=== PATIENT | male | born 1955 | race Caucasian/White ===

== ENCOUNTER 2023-12-06 03:54 | Inpatient (IN) | payer MEDICARE ==
[~2023-12-06] VITALS: Ht 182.9 cm; Wt 105.1 kg
[~2023-12-06 03:54] MED LIST: ASPI325 PO; BUSP10 PO; Bactrim Ds Tab1 EACH PO; CEPH500 PO; CIPR500 PO; CREAMS; FLUOCINONIDE120 GM; HYDACE5 PO; HYDSUL200 PO; LISI5 PO; METO25ER PO; METPRE4DP PO; METTREX2.5 PO; NAPR500 PO; Nitrostat0.4 MG SL; OSEL75CA PO; OXYC10TA19 PO; Percocet 5-3251 EACH PO; Prilosec20 MG PO; SUBOXONE 8 MG-1 EACH SL; Zofran Odt4 MG SL; [UNRECOGNIZED DRUG - OTHER] TOP
[2023-12-06 04:39] LABS: BASOPHILS ABSOLUTE AUTO 0.03 K/mm3 (0.00-0.23); BASOPHILS PERCENT AUTO 0 % (0-2); EOSINOPHILS ABSOLUTE AUTO 0.12 K/mm3 (0.00-0.68); EOSINOPHILS PERCENT AUTO 1 % (0-6); Hemoglobin 11.8 g/dL (13.5-17.5); IMMATURE GRAN ABSOLUTE AUTO 0.02 K/mm3 (0.00-0.10); IMMATURE GRAN PERCENT AUTO 0 % (0-1); LYMPHOCYTES ABSOLUTE AUTO 0.61 K/mm3 (0.84-5.20); LYMPHOCYTES PERCENT AUTO 6 % (21-46); MONOCYTES ABSOLUTE AUTO 0.54 K/mm3 (0.16-1.47); MONOCYTES PERCENT AUTO 6 % (4-13); Mean Corpuscular HGB 30.7 pg (26.0-34.0); Mean Corpuscular HGB Conc 34.7 g/dL (31.5-36.5); Mean Corpuscular Volume 89 fL (80-100); Mean Platelet Volume 9.9 fL (9.1-12.4); NEUTROPHILS PERCENT AUTO 87 % (41-73); Platelet Count 208 K/mm3 (150-400); RDW Coefficient Variation 13.2 % (11.7-14.2); RDW Standard Deviation 43.2 fL (35.1-46.3); Red Blood Cell Count 3.84 M/mm3 (4.30-5.90); White Blood Cell Count 9.82 K/mm3 (4.00-11.30)
[2023-12-06 04:55] LABS: Albumin, Blood 3.6 g/dL (3.4-5.0); Bilirubin, Total 0.6 mg/dL (0.1-1.0); Bun/Creatinine Ratio 17.6 (12.0-20.0); Calcium, Blood 8.7 mg/dL (8.5-10.1); Creatinine, Blood 1.19 mg/dL (0.60-1.20); Globulin, Blood 3.7 g/dL (2.2-4.0); Potassium, Blood 4.2 mmol/L (3.5-5.5); Total Protein, Blood 7.3 g/dL (6.4-8.2)
[2023-12-06 04:55] LABS: Base Excess Venous 1.5 mmol/L; Bicarbonate Venous 25.5 mmol/L (24.0-30.0); PCO2 Venous 42.6 mmHg (38-42)
[2023-12-06] MEDS ORDERED: CefTRIAXone Sodium 1,000 MG in NS 50 ML IV ONE (05:10)
[2023-12-06] MEDS ORDERED: Azithromycin 500 MG in NS 250 ML IV ONE (05:10)
[2023-12-06 05:36] LABS: Influenza A, PCR NEGATIVE (NEGATIVE); Influenza B, PCR NEGATIVE (NEGATIVE); Resp Syncytial Virus, PCR NEGATIVE (NEGATIVE); SARS-Cov-2 (COVID-19) PCR, MMC NEGATIVE (NEGATIVE)
[2023-12-06] MEDS ORDERED: Ondansetron HCl 2 MG / ML 2ML Vial IV PRN (06:05)
[2023-12-06] MEDS ORDERED: NS 1,000 ML IV SCH (06:05)
[2023-12-06 06:18] LABS: International Normalized Ratio 1.02; Prothrombin Time Results 10.7 Sec (9.7-11.5)
[2023-12-06 08:15] VITALS: BP 130/95
[2023-12-06] MEDS ORDERED: Enoxaparin 40 MG/0.4 ML SYR SC SCH (09:00)
[2023-12-06] MEDS ORDERED: NS 1,000 ML IV ONE (10:35)
--- NOTE | 2023-12-06 12:00 | NUR ---
Received pt from ED awake and alert x3. Denies pain. Lung sounds with exp wheeze and rhonchi ausculated on 4L NC. Unable to complete home med rec due to unknown names and dose of meds. at bedside states will bring meds to room today. Oriented to room and call light. Encouraged to call for ast to bathroom. Will continue to follow this shift.
[2023-12-06] MEDS ORDERED: Tiotropium Bromide 2.5 MCG/ACT MIST INHAL (10 ACT/4 GM) INH SCH (12:05)
[2023-12-06] MEDS ORDERED: Mometasone/Formoterol MDI 200/5 mcg 13 GM INH SCH (12:05)
[2023-12-06] MEDS ORDERED: Albuterol 2.5 MG/3 ML VIAL INH PRN (12:05)
[2023-12-06] MEDS ORDERED: Nicotine 14 MG PATCH TOP PRN (13:45)
[2023-12-06] MEDS ORDERED: LORazepam 1 MG Tab PO PRN (13:45)
[2023-12-06] MEDS ORDERED: PredniSONE 20 MG Tab PO SCH (14:00)
[2023-12-06] MEDS ORDERED: ATOR20 PO (14:32)
[2023-12-06] MEDS ORDERED: Flomax0.4 MG PO (14:33)
[2023-12-06] MEDS ORDERED: HYDHCL25 PO (14:35)
[2023-12-06] MEDS ORDERED: HYDCHL25 PO (14:36)
[2023-12-06] MEDS ORDERED: Bisoprolol Fuma10 MG PO (14:36)
[2023-12-06] MEDS ORDERED: ASPI81CH PO (14:37)
[2023-12-06] MEDS ORDERED: Amlodipine Bes2.5 MG PO (14:37)
[2023-12-06] MEDS ORDERED: PROAIR RESPICL90 MCG INH (14:40)
[2023-12-06] MEDS ORDERED: CLOBETASOL 0.0560 G1 TOP (14:43)
[2023-12-06] MEDS ORDERED: STIOLTO RESPIMAT4 G1 INH (14:44)
[2023-12-06] MEDS ORDERED: HyDROXyzine HCl 25 MG Tab PO PRN (15:00)
[2023-12-06 15:43] VITALS: BP 113/58
[2023-12-06] MEDS ORDERED: Ipratropium/Albuterol SulF 2.5-0.5MG/3 ML Amp INH SCH ×2 (16:30→22:25)
--- NOTE | 2023-12-06 17:10 | NUR ---
SHIFT SUMMARY Pt remains A&Ox3 this shift. VSS. Denies pain. Ativan effective for anxiety. Resting comfortably throughout the day. Currently on 3L NC. Up to bathroom with SBA. Encouraged to call for ast secondary to IV lines. Pain and safety maintained. Will continue to monitor this shift.
[2023-12-06 19:24] VITALS: BP 130/71
[2023-12-06] MEDS ORDERED: Hydroxychloroquine Sulfate 200 MG Tab PO SCH (21:00)
[2023-12-06] MEDS ORDERED: Buprenorphine HCL/Naloxone HCL 2-0.5MG 1 EA SL SCH (21:00)
[2023-12-06] MEDS ORDERED: Atorvastatin 10 MG Tab PO SCH (21:00)
[2023-12-06] MEDS ORDERED: [UNRECOGNIZED DRUG - OTHER] TOP SCH (21:00)
[2023-12-06] MEDS ORDERED: Tamsulosin HCl 0.4 MG Cap PO SCH (21:00)
[2023-12-06] MEDS ORDERED: Lactobacil 2-S.Thermo-Bifido 1 1 Cap PO SCH (21:00)
[2023-12-07 04:45] VITALS: BP 131/74
[2023-12-07 04:55] LABS: BASOPHILS ABSOLUTE AUTO 0.02 K/mm3 (0.00-0.23); BASOPHILS PERCENT AUTO 0 % (0-2); EOSINOPHILS PERCENT AUTO 0 % (0-6); Hematocrit 31.5 % (37.0-53.0); Hemoglobin 10.8 g/dL (13.5-17.5); IMMATURE GRAN ABSOLUTE AUTO 0.05 K/mm3 (0.00-0.10); IMMATURE GRAN PERCENT AUTO 0 % (0-1); LYMPHOCYTES ABSOLUTE AUTO 1.51 K/mm3 (0.84-5.20); LYMPHOCYTES PERCENT AUTO 11 % (21-46); MONOCYTES ABSOLUTE AUTO 0.93 K/mm3 (0.16-1.47); MONOCYTES PERCENT AUTO 7 % (4-13); Mean Corpuscular HGB 31.1 pg (26.0-34.0); Mean Corpuscular HGB Conc 34.3 g/dL (31.5-36.5); Mean Corpuscular Volume 91 fL (80-100); Mean Platelet Volume 9.6 fL (9.1-12.4); NEUTROPHILS ABSOLUTE AUTO 10.71 K/mm3 (1.96-9.15); NEUTROPHILS PERCENT AUTO 81 % (41-73); Platelet Count 196 K/mm3 (150-400); RDW Coefficient Variation 13.9 % (11.7-14.2); RDW Standard Deviation 46.4 fL (35.1-46.3); Red Blood Cell Count 3.47 M/mm3 (4.30-5.90); White Blood Cell Count 13.22 K/mm3 (4.00-11.30)
--- NOTE | 2023-12-07 04:59 | NUR ---
no acute changes, patient rested, no s/s of distress, periods of resting with load snores, sats 99% on 2l o2 while sleeping, alert and oriented, makes needs known, patient anxious to be discahrged home, patient educated on the importance of culture results, antibiotics, deep breathing, and coughing. ls crackle in the bases, clears congestion with cough. denies cp, 131/74, tele nsr, will relay to am rn, call light with in reach
[2023-12-07 05:40] LABS: Albumin/Globulin Ratio 0.8 (0.8-1.8); Bilirubin, Total 0.4 mg/dL (0.1-1.0); Bun/Creatinine Ratio 26.2 (12.0-20.0); Calcium, Blood 8.6 mg/dL (8.5-10.1); Creatinine, Blood 1.03 mg/dL (0.60-1.20); Potassium, Blood 4.2 mmol/L (3.5-5.5)
[2023-12-07 07:39] VITALS: BP 135/60
[2023-12-07] MEDS ORDERED: HydroCHLOROthiazide 25 mg Tab PO SCH (09:00)
[2023-12-07] MEDS ORDERED: Aspirin 81 MG Chew PO SCH (09:00)
[2023-12-07] MEDS ORDERED: CefTRIAXone Sodium 1,000 MG in NS 100 ML IV SCH (09:00)
[2023-12-07] MEDS ORDERED: Metoprolol Succinate 50 MG TABCR PO SCH (09:00)
[2023-12-07] MEDS ORDERED: AmLODIPine Besylate 5 MG Tab PO SCH (09:00)
[2023-12-07] MEDS ORDERED: Azithromycin 500 MG in NS 250 ML IV SCH (09:00)
[2023-12-07 15:15] VITALS: BP 134/71
--- NOTE | 2023-12-07 16:27 | NUR ---
SHIFT SUMMARY Pt remains A&Ox3 this shift. VSS. Lung sounds coarse BLL. Ambulated in pineda with RN. O2 sat 93% RA. O2 sat 96% RA at rest. Dyspnea noted with ambulating. Pt calm this shift. Voiding without difficulty. Tolerating meals. No further needs id or verbalized at this time.
--- NOTE | 2023-12-07 18:26 | NUR ---
Pt c/o chest pain after dinner. Orders for ekg, trop and NTG. VS obtained/stable. Skin warm/dry. Dr. Kaiser now at bedside. No further acute distress noted.
[2023-12-07 19:49] VITALS: BP 149/78
[2023-12-07] MEDS ORDERED: Acetaminophen 325 MG TABLET PO PRN (21:20)
[2023-12-08 03:13] VITALS: BP 146/75
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
[2023-12-08 05:59] LABS: BASOPHILS ABSOLUTE AUTO 0.01 K/mm3 (0.00-0.23); BASOPHILS PERCENT AUTO 0 % (0-2); EOSINOPHILS ABSOLUTE AUTO 0.03 K/mm3 (0.00-0.68); EOSINOPHILS PERCENT AUTO 0 % (0-6); Hematocrit 31.8 % (37.0-53.0); Hemoglobin 10.7 g/dL (13.5-17.5); IMMATURE GRAN ABSOLUTE AUTO 0.05 K/mm3 (0.00-0.10); IMMATURE GRAN PERCENT AUTO 1 % (0-1); LYMPHOCYTES ABSOLUTE AUTO 2.32 K/mm3 (0.84-5.20); LYMPHOCYTES PERCENT AUTO 21 % (21-46); MONOCYTES ABSOLUTE AUTO 1.09 K/mm3 (0.16-1.47); MONOCYTES PERCENT AUTO 10 % (4-13); Mean Corpuscular HGB 30.3 pg (26.0-34.0); Mean Corpuscular HGB Conc 33.6 g/dL (31.5-36.5); Mean Corpuscular Volume 90 fL (80-100); Mean Platelet Volume 10.2 fL (9.1-12.4); NEUTROPHILS ABSOLUTE AUTO 7.59 K/mm3 (1.96-9.15); NEUTROPHILS PERCENT AUTO 68 % (41-73); Platelet Count 231 K/mm3 (150-400); RDW Coefficient Variation 13.7 % (11.7-14.2); RDW Standard Deviation 45.4 fL (35.1-46.3); Red Blood Cell Count 3.53 M/mm3 (4.30-5.90); White Blood Cell Count 11.09 K/mm3 (4.00-11.30)
[2023-12-08 06:22] LABS: Bun/Creatinine Ratio 25.2 (12.0-20.0); Calcium, Blood 8.9 mg/dL (8.5-10.1); Creatinine, Blood 1.03 mg/dL (0.60-1.20); Potassium, Blood 3.9 mmol/L (3.5-5.5)
[2023-12-08 07:24] VITALS: BP 128/75
[2023-12-08 09:32] VITALS: BP 133/63
[2023-12-08] MEDS ORDERED: NS 250 ML IV PRN (09:50)
--- NOTE | 2023-12-08 10:18 | NUR ---
CALLED DR LARA- PT HAS 1.5 HOURS OF ABX TO RUN, HE WAS UNAVAILBLE TO START UNTIL NOW. HOME O2 EVAL ORDERED FOR DC HOME TODAY, LEFT A MESSAGE WAITING FOR A CALL BACK, ASKED IF IT IS APPROPRIATE TO SWITCH TO PO ABX AT THIS TIME FOR THIS PT.
[2023-12-08] MEDS ORDERED: Azithromycin 250 MG Tab PO SCH ×2 (11:00)
[2023-12-08] MEDS ORDERED: Amoxicillin/Clavulanate K 875 MG Tab PO SCH (11:00)
[2023-12-08] MEDS ORDERED: ALBU90OI INH (11:42)
[2023-12-08] MEDS ORDERED: Acetaminophen325 M1 PO (11:47)
[2023-12-08] MEDS ORDERED: AMOX875 PO (11:48)
[2023-12-08] MEDS ORDERED: PRED20 PO (11:56)
[2023-12-08] MEDS ORDERED: VISBIOME 112.51 EACH PO (11:58)
--- NOTE | 2023-12-08 12:46 | NUR ---
DISCHARGE NOTE- PT WAS GIVEN VERBAL AND WRITTEN DISCHARGE INSTRUCTIONS AND ACKNOWLEDGED UINDERSTANDING OF THEM. IV AND TELE DC'D PRIOR TO DISCHARGE, NO S&S OF DISTRESS NOTED AT THE TIME OF DISCHARGE. PT ESCORTED OUT VIA WC BY THE LOT BOSS.
== END 2023-12-08 12:50 | disposition home or self-care (01) | DRG 193 ==
LOC: ER 03:54 → MEDS 06:01
PROVIDERS: Emergency Medicine; Internal Medicine; ADMIT Internal Medicine
DX: J18.9 Pneumonia, unspecified organism (principal); J96.21 Acute and chronic respiratory failure with hypoxia; J44.0 Chronic obstructive pulmonary disease with (acute) lower respiratory infection; J44.1 Chronic obstructive pulmonary disease with (acute) exacerbation; D63.1 Anemia in chronic kidney disease; N18.2 Chronic kidney disease, stage 2 (mild); R79.1 Abnormal coagulation profile; M32.9 Systemic lupus erythematosus, unspecified; F41.9 Anxiety disorder, unspecified; F17.290 Nicotine dependence, other tobacco product, uncomplicated; I12.9 Hypertensive chronic kidney disease with stage 1 through stage 4 chronic kidney disease, or unspecified chronic kidney disease; Z99.81 Dependence on supplemental oxygen
CPT/HCPCS: 0241U; 36415; 71046; 71260; 80048; 80053; 82803; 83605; 83880; 84145; 84484; 85025; 85379; 85610; 94640; 94664; 94760; 94761; 96365-59; 96368; 99285-25; A9270; J0456; J0572; J0696; J1650; J7030; J7050; J7512; Q9967

== ENCOUNTER 2024-06-12 02:30 | Emergency (ER) | payer MEDICARE, OTHER ==
[~2024-06-12] VITALS: Ht 177.8 cm; Wt 108.9 kg
[~2024-06-12 02:30] MED LIST changes: +ALBU90OI INH; +AMOX875 PO; +ASPI81CH PO; +ATOR20 PO; +Acetaminophen325 M1 PO; +Amlodipine Bes2.5 MG PO; +Bisoprolol Fuma10 MG PO; +CLOBETASOL 0.0560 G1 TOP; +Flomax0.4 MG PO; +HYDCHL25 PO; +HYDHCL25 PO; +PRED20 PO; +PROAIR RESPICL90 MCG INH; +STIOLTO RESPIMAT4 G1 INH; +VISBIOME 112.51 EACH PO
[2024-06-12] MEDS ORDERED: Ondansetron HCl 2 MG / ML 2ML Vial IV ONE (03:00)
[2024-06-12 03:04] LABS: BASOPHILS ABSOLUTE AUTO 0.02 K/mm3 (0.00-0.23); BASOPHILS PERCENT AUTO 0 % (0-2); EOSINOPHILS ABSOLUTE AUTO 0.12 K/mm3 (0.00-0.68); EOSINOPHILS PERCENT AUTO 1 % (0-6); Hematocrit 34.9 % (37.0-53.0); Hemoglobin 11.9 g/dL (13.5-17.5); IMMATURE GRAN ABSOLUTE AUTO 0.04 K/mm3 (0.00-0.10); IMMATURE GRAN PERCENT AUTO 0 % (0-1); LYMPHOCYTES ABSOLUTE AUTO 1.59 K/mm3 (0.84-5.20); LYMPHOCYTES PERCENT AUTO 11 % (21-46); MONOCYTES ABSOLUTE AUTO 1.38 K/mm3 (0.16-1.47); MONOCYTES PERCENT AUTO 10 % (4-13); Mean Corpuscular HGB 30.9 pg (26.0-34.0); Mean Corpuscular HGB Conc 34.1 g/dL (31.5-36.5); Mean Corpuscular Volume 91 fL (80-100); Mean Platelet Volume 9.7 fL (9.1-12.4); NEUTROPHILS ABSOLUTE AUTO 10.91 K/mm3 (1.96-9.15); NEUTROPHILS PERCENT AUTO 78 % (41-73); Platelet Count 183 K/mm3 (150-400); RDW Coefficient Variation 13.6 % (11.7-14.2); RDW Standard Deviation 45.2 fL (35.1-46.3); Red Blood Cell Count 3.85 M/mm3 (4.30-5.90); White Blood Cell Count 14.06 K/mm3 (4.00-11.30)
[2024-06-12] MEDS ORDERED: FUROSEMIDE20 MG PO (03:15)
[2024-06-12 03:23] LABS: Albumin, Blood 3.9 g/dL (3.4-5.0); Bilirubin, Total 0.7 mg/dL (0.1-1.0); Bun/Creatinine Ratio 13.6 (12.0-20.0); Creatinine, Blood 1.47 mg/dL (0.60-1.20); Globulin, Blood 3.8 g/dL (2.2-4.0); Potassium, Blood 4.5 mmol/L (3.5-5.5); Total Protein, Blood 7.7 g/dL (6.4-8.2)
[2024-06-12 03:40] LABS: Influenza A, PCR NEGATIVE (NEGATIVE); Influenza B, PCR NEGATIVE (NEGATIVE); Resp Syncytial Virus, PCR NEGATIVE (NEGATIVE); SARS-Cov-2 (COVID-19) PCR, MMC NEGATIVE (NEGATIVE)
[2024-06-12 05:30] VITALS: BP 121/59
[2024-06-12] MEDS ORDERED: Ipratropium/Albuterol SulF 2.5-0.5MG/3 ML Amp INH SCH (06:00)
[2024-06-12] MEDS ORDERED: FLU VACC TS2024-25(6MOS UP)/PF 45 MCG/0.5 ML SYRINGE IM ONE (06:05)
[2024-06-12] MEDS ORDERED: Acetaminophen 325 MG TABLET PO PRN (06:05)
[2024-06-12] MEDS ORDERED: GuaiFENesin 600 MG TabCR PO SCH (09:00)
[2024-06-12] MEDS ORDERED: Lactobacil 2-S.Thermo-Bifido 1 1 Cap PO SCH (09:00)
[2024-06-13] MEDS ORDERED: Enoxaparin 40 MG/0.4 ML SYR SC SCH (09:00)
== END 2024-06-12 06:38 | disposition home or self-care (01) ==
LOC: ER 02:30 → MEDS 02:31 → ER 02:31
PROVIDERS: Student in an Organized Health Care Education/Training Program
DX: J06.9 Acute upper respiratory infection, unspecified (principal); N17.9 Acute kidney failure, unspecified; Z79.82 Long term (current) use of aspirin; Z79.899 Other long term (current) drug therapy; Z88.8 Allergy status to other drugs, medicaments and biological substances
CPT/HCPCS: 0241U; 71045; 80053; 83880; 84145; 84484; 85025; 93005; 93010; 96374; 99285-25; J2405

== ENCOUNTER 2024-06-12 20:47 | Inpatient (IN) | payer MEDICARE, OTHER ==
[~2024-06-12] VITALS: Ht 175.3 cm; Wt 105.9 kg
[~2024-06-12 20:47] MED LIST changes: +FUROSEMIDE20 MG PO
[2024-06-12 21:11] LABS: BASOPHILS ABSOLUTE AUTO 0.02 K/mm3 (0.00-0.23); BASOPHILS PERCENT AUTO 0 % (0-2); EOSINOPHILS ABSOLUTE AUTO 0.01 K/mm3 (0.00-0.68); EOSINOPHILS PERCENT AUTO 0 % (0-6); Hemoglobin 11.5 g/dL (13.5-17.5); IMMATURE GRAN ABSOLUTE AUTO 0.06 K/mm3 (0.00-0.10); IMMATURE GRAN PERCENT AUTO 0 % (0-1); LYMPHOCYTES ABSOLUTE AUTO 0.75 K/mm3 (0.84-5.20); LYMPHOCYTES PERCENT AUTO 5 % (21-46); MONOCYTES ABSOLUTE AUTO 0.94 K/mm3 (0.16-1.47); MONOCYTES PERCENT AUTO 6 % (4-13); Mean Corpuscular HGB 30.8 pg (26.0-34.0); Mean Corpuscular HGB Conc 33.8 g/dL (31.5-36.5); Mean Corpuscular Volume 91 fL (80-100); Mean Platelet Volume 9.6 fL (9.1-12.4); NEUTROPHILS ABSOLUTE AUTO 13.57 K/mm3 (1.96-9.15); NEUTROPHILS PERCENT AUTO 88 % (41-73); Platelet Count 166 K/mm3 (150-400); RDW Coefficient Variation 13.9 % (11.7-14.2); RDW Standard Deviation 46.9 fL (35.1-46.3); Red Blood Cell Count 3.73 M/mm3 (4.30-5.90); White Blood Cell Count 15.35 K/mm3 (4.00-11.30)
[2024-06-12 21:32] LABS: Albumin, Blood 3.6 g/dL (3.4-5.0); Albumin/Globulin Ratio 0.9 (0.8-1.8); Bilirubin, Total 1.1 mg/dL (0.1-1.0); Bun/Creatinine Ratio 16.7 (12.0-20.0); Calcium, Blood 8.6 mg/dL (8.5-10.1); Creatinine, Blood 1.5 mg/dL (0.60-1.20); Globulin, Blood 3.9 g/dL (2.2-4.0); Potassium, Blood 4.3 mmol/L (3.5-5.5); Total Protein, Blood 7.5 g/dL (6.4-8.2)
[2024-06-13] MEDS ORDERED: FLU VACC TS2024-25(6MOS UP)/PF 45 MCG/0.5 ML SYRINGE IM ONE (03:15)
[2024-06-13] MEDS ORDERED: Azithromycin 500 MG in NS 250 ML IV SCH (03:29)
[2024-06-13] MEDS ORDERED: CefTRIAXone Sodium 1,000 MG in NS 100 ML IV SCH (03:29)
[2024-06-13] MEDS ORDERED: LORazepam 0.5 MG Tab PO ONE (04:00)
[2024-06-13 04:09] VITALS: BP 126/69
[2024-06-13] MEDS ORDERED: NS 250 ML IV PRN (04:30)
[2024-06-13 05:54] LABS: Hematocrit 35.5 % (37.0-53.0); Hemoglobin 11.7 g/dL (13.5-17.5); Mean Corpuscular HGB 31.3 pg (26.0-34.0); Mean Corpuscular Volume 95 fL (80-100); Mean Platelet Volume 9.8 fL (9.1-12.4); Platelet Count 171 K/mm3 (150-400); RDW Coefficient Variation 14.2 % (11.7-14.2); RDW Standard Deviation 49.9 fL (35.1-46.3); Red Blood Cell Count 3.74 M/mm3 (4.30-5.90)
[2024-06-13 05:56] LABS: Base Excess Venous 2.3 mmol/L; Bicarbonate Venous 24.2 mmol/L (24.0-30.0); PCO2 Venous 61.4 mmHg (38-42); pH Blood Venous 7.28 (7.34-7.37)
[2024-06-13] MEDS ORDERED: Acetaminophen 325 MG TABLET PO ONE (06:00)
[2024-06-13] MEDS ORDERED: Acetaminophen 325 MG TABLET PO PRN (06:00)
[2024-06-13 06:17] LABS: BAND PERCENT MAN 20 % (0-8); BASOPHILS PERCENT MAN 0 % (0-2); EOSINOPHILS ABSOLUTE MAN 0.46 K/mm3 (0.00-0.68); EOSINOPHILS PERCENT MAN 2 % (0-6); LYMPHOCYTES ABSOLUTE MAN 0.93 K/mm3 (0.84-5.20); LYMPHOCYTES PERCENT MAN 4 % (21-46); MONOCYTES ABSOLUTE MAN 0.69 K/mm3 (0.16-1.47); MONOCYTES PERCENT MAN 3 % (4-13); SEG NEUTROPHILS PERCENT MAN 71 % (41-73); TOTAL CELLS COUNTED 100
[2024-06-13 06:27] LABS: Albumin, Blood 3.4 g/dL (3.4-5.0); Albumin/Globulin Ratio 0.8 (0.8-1.8); Bilirubin, Total 0.9 mg/dL (0.1-1.0); Bun/Creatinine Ratio 17.2 (12.0-20.0); Calcium, Blood 8.9 mg/dL (8.5-10.1); Creatinine, Blood 1.51 mg/dL (0.60-1.20); Globulin, Blood 4.4 g/dL (2.2-4.0); Potassium, Blood 4.7 mmol/L (3.5-5.5); Total Protein, Blood 7.8 g/dL (6.4-8.2)
[2024-06-13] MEDS ORDERED: Ipratropium/Albuterol SulF 2.5-0.5MG/3 ML Amp INH SCH (07:00)
[2024-06-13] MEDS ORDERED: Albuterol 2.5 MG/3 ML VIAL INH PRN (07:00)
[2024-06-13 07:24] VITALS: BP 114/49
[2024-06-13] MEDS ORDERED: Ondansetron 4 MG SoluTab MM PRN (07:35)
--- NOTE | 2024-06-13 07:40 | NUR ---
SHIFT SUMMARY PT ADMITTED WITH RESPIRATORY FAILURE. HX COPD. PT ARRIVED ON 3L O2 VIA NC. ED RN DID NOT CONNECT TO WALL UPON ARRIVAL. PT HAD TWO CRITICAL VALUES. PH WAS 7.283. LACTIC ACID 2.4. INSPECTOR SHEET [employer]S AND DR. BROWN NOTIFIED. DOCTOR ORDERED RT TREATMENTS FOR CPAP/BIPAP PROTOCOL. PT RECEIVED BREATHING TREATMENT. CURRENTLY RESTING IN HIS BED.
[2024-06-13] MEDS ORDERED: Mometasone/Formoterol MDI 200/5 mcg 13 GM INH SCH (07:50)
[2024-06-13] MEDS ORDERED: LORazepam 0.5 MG Tab PO PRN (07:50)
[2024-06-13] MEDS ORDERED: MethylPREDNISolone Sod Succ 125 MG Vial IV SCH (08:00)
[2024-06-13] MEDS ORDERED: Enoxaparin 40 MG/0.4 ML SYR SC SCH (09:00)
[2024-06-13] MEDS ORDERED: Metoprolol Tartrate 25 MG Tab PO SCH (09:00)
[2024-06-13] MEDS ORDERED: GuaiFENesin 600 MG TabCR PO SCH ×2 (09:00)
[2024-06-13] MEDS ORDERED: Lactobacil 2-S.Thermo-Bifido 1 1 Cap PO SCH (09:00)
[2024-06-13] MEDS ORDERED: Furosemide 10 MG/ML 4ML Vial IV SCH (09:00)
[2024-06-13] MEDS ORDERED: Buprenorphine HCL/Naloxone HCL 8MG-2MG Tab SL SCH (09:00)
[2024-06-13] MEDS ORDERED: Furosemide 10 MG / ML 2ML Vial IV SCH (09:00)
[2024-06-13 09:44] LABS: Base Excess Venous 1.1 mmol/L; Bicarbonate Venous 25.1 mmol/L (24.0-30.0); PCO2 Venous 47.3 mmHg (38-42); pH Blood Venous 7.36 (7.34-7.37)
[2024-06-13] MEDS ORDERED: ALPRAZolam 0.5 MG Tab PO PRN (10:30)
[2024-06-13] MEDS ORDERED: Omeprazole 20 MG CapCR PO SCH (16:30)
[2024-06-13] MEDS ORDERED: Tamsulosin HCl 0.4 MG Cap PO SCH (18:00)
[2024-06-13 18:43] VITALS: BP 141/74
[2024-06-13 19:27] VITALS: BP 150/70
[2024-06-13 22:41] LABS: Influenza A, PCR NEGATIVE (NEGATIVE); Influenza B, PCR NEGATIVE (NEGATIVE); Resp Syncytial Virus, PCR NEGATIVE (NEGATIVE); SARS-Cov-2 (COVID-19) PCR, MMC NEGATIVE (NEGATIVE)
[2024-06-14 02:45] VITALS: BP 133/70
[2024-06-14 05:24] LABS: Hematocrit 30.6 % (37.0-53.0); Hemoglobin 10.3 g/dL (13.5-17.5); Mean Corpuscular HGB 31.2 pg (26.0-34.0); Mean Corpuscular HGB Conc 33.7 g/dL (31.5-36.5); Mean Corpuscular Volume 93 fL (80-100); Mean Platelet Volume 10.1 fL (9.1-12.4); Platelet Count 161 K/mm3 (150-400); RDW Standard Deviation 47.5 fL (35.1-46.3); White Blood Cell Count 17.52 K/mm3 (4.00-11.30)
[2024-06-14 05:56] LABS: Bun/Creatinine Ratio 25.8 (12.0-20.0); Creatinine, Blood 1.2 mg/dL (0.60-1.20); Potassium, Blood 4.6 mmol/L (3.5-5.5)
[2024-06-14 07:30] VITALS: BP 145/77
--- NOTE | 2024-06-14 12:04 | NUR ---
"Spiritual Care Visit | Pt. Request Pt. is sitting on the side of his bed eating lunch when he welcomes my visit. Pt. is pleasant, but displays evidence about being guarded about the detials of his carol. With theraputic listening and a calming presence the Pt. began to open up. Prayed with Pt. Pt. verbalized rgatitude for the spiritual care visit."
[2024-06-14] MEDS ORDERED: Benzonatate 100 MG Cap PO PRN (16:00)
--- NOTE | 2024-06-14 17:32 | NUR ---
SHIFT SUMMARY PT A&OX4, VSS, ON 3L O2 NC, AMB IND, TOLERATING PO, VOIDING, AND DENIED PAIN. PT CONT TO HAVE HACKING COUGH W/ PINK TINGED SPUTUM, TESSALON GIVEN. NO OTHER ACUTE CHANGES THIS SHIFT. CALL LIGHT WITHIN REACH AND PT ABLE TO MAKE NEEDS KNOWN.
[2024-06-14 19:51] VITALS: BP 148/71
[2024-06-15 02:55] VITALS: BP 175/89
[2024-06-15 05:37] LABS: BASOPHILS ABSOLUTE AUTO 0.03 K/mm3 (0.00-0.23); BASOPHILS PERCENT AUTO 0 % (0-2); EOSINOPHILS PERCENT AUTO 0 % (0-6); Hematocrit 31.8 % (37.0-53.0); Hemoglobin 10.7 g/dL (13.5-17.5); IMMATURE GRAN ABSOLUTE AUTO 0.28 K/mm3 (0.00-0.10); IMMATURE GRAN PERCENT AUTO 2 % (0-1); LYMPHOCYTES ABSOLUTE AUTO 1.37 K/mm3 (0.84-5.20); LYMPHOCYTES PERCENT AUTO 9 % (21-46); MONOCYTES ABSOLUTE AUTO 1.17 K/mm3 (0.16-1.47); MONOCYTES PERCENT AUTO 8 % (4-13); Mean Corpuscular HGB Conc 33.6 g/dL (31.5-36.5); Mean Corpuscular Volume 92 fL (80-100); Mean Platelet Volume 10.4 fL (9.1-12.4); NEUTROPHILS ABSOLUTE AUTO 12.58 K/mm3 (1.96-9.15); NEUTROPHILS PERCENT AUTO 82 % (41-73); Platelet Count 211 K/mm3 (150-400); RDW Coefficient Variation 14.1 % (11.7-14.2); RDW Standard Deviation 47.8 fL (35.1-46.3); Red Blood Cell Count 3.45 M/mm3 (4.30-5.90); White Blood Cell Count 15.43 K/mm3 (4.00-11.30)
[2024-06-15 05:53] LABS: Magnesium, Blood 2.1 mg/dL (1.6-2.4)
[2024-06-15 05:56] LABS: Albumin, Blood 2.8 g/dL (3.4-5.0); Albumin/Globulin Ratio 0.6 (0.8-1.8); Bilirubin, Total 0.4 mg/dL (0.1-1.0); Bun/Creatinine Ratio 28.3 (12.0-20.0); Calcium, Blood 8.9 mg/dL (8.5-10.1); Creatinine, Blood 1.27 mg/dL (0.60-1.20); Globulin, Blood 4.5 g/dL (2.2-4.0); Phosphorus, Blood 2.6 mg/dL (2.5-4.9); Potassium, Blood 4.2 mmol/L (3.5-5.5); Total Protein, Blood 7.3 g/dL (6.4-8.2)
--- NOTE | 2024-06-15 06:22 | NUR ---
SHIFT SUMMARY PT IS ALERT AND ORIENTED TIMES 4 ABLE TO MAKE NEEDS KNOWN. PT GIVEN PRN TESSALON FOR COUGH. PT ABLE TO MAKE HIS NEEDS KNOWN AND APPEARED TO BE RESTING COMFORTABLY. BED IN LOW POSITION, CALL LIGHT WITHIN REACH, RAILS TIMES 2.
[2024-06-15 07:41] VITALS: BP 152/81
[2024-06-15] MEDS ORDERED: MethylPREDNISolone Sod Succ 125 MG Vial IV SCH (09:00)
[2024-06-15] MEDS ORDERED: Azithromycin 250 MG Tab PO SCH (09:00)
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
[2024-06-15 15:04] VITALS: BP 162/78
[2024-06-15] MEDS ORDERED: DOXY100 PO (17:53)
[2024-06-15] MEDS ORDERED: Prednisone10 MG PO (17:55)
[2024-06-15] MEDS ORDERED: STIOLTO RESPIMAT4 G1 INH (17:56)
--- NOTE | 2024-06-15 18:27 | NUR ---
DISCHARGE NOTE PT DISCHARGED HOME AT 1820. PT PROVIDED W/ VERBAL AND WRITTEN INSTRCUTIONS AND REPORTED UNDERSTANDING. PT A&OX4, VSS, AMB IND, TOLERATING PO, VOIDING, AND DENIED PAIN. BELONGINGS WERE RETURNED AND PT ESCOURTED OUT VIA W/C BY LATISHA GOODWIN.
== END 2024-06-15 18:30 | disposition home or self-care (01) | DRG 193 ==
LOC: ER 20:47 → MEDS 06-13 03:11
PROVIDERS: Family Medicine; Hospitalist; Physician Assistant; ADMIT Student in an Organized Health Care Education/Training Program
DX: J18.9 Pneumonia, unspecified organism (principal); I50.33 Acute on chronic diastolic (congestive) heart failure; J96.01 Acute respiratory failure with hypoxia; J44.0 Chronic obstructive pulmonary disease with (acute) lower respiratory infection; J44.1 Chronic obstructive pulmonary disease with (acute) exacerbation; I13.0 Hypertensive heart and chronic kidney disease with heart failure and stage 1 through stage 4 chronic kidney disease, or unspecified chronic kidney disease; E66.9 Obesity, unspecified; F41.0 Panic disorder [episodic paroxysmal anxiety]; M32.9 Systemic lupus erythematosus, unspecified; Z87.891 Personal history of nicotine dependence; Z88.8 Allergy status to other drugs, medicaments and biological substances; Z91.048 Other nonmedicinal substance allergy status; Z79.82 Long term (current) use of aspirin; Z79.899 Other long term (current) drug therapy
CPT/HCPCS: 0241U; 36415; 71045; 80048; 80053; 82803; 83605; 83735; 84100; 84145; 84484; 85025; 85027; 87070; 87205; 87449; 94640; 94660; 94664; 94760; 94761; 94762; 99285; A9270; J0456; J0696; J1650; J1940; J2919; J7050